=== PATIENT | male | born 1940 | race Caucasian/White ===

== ENCOUNTER → 2018-11-15 | Outpatient (CLI) | payer MEDICARE, OTHER ==
[~2018-11-15] MED LIST: AMLO10 PO; ASPI81CH PO; ASPI81EC PO; CARV25 PO; HYDR1TAB94 PO; XARELTO10 MG PO
== END | disposition home or self-care (01) ==
LOC: PLD 11:08 → LAB SHORT 11:08
DX: C44.319 Basal cell carcinoma of skin of other parts of face (principal); L57.0 Actinic keratosis
CPT/HCPCS: 88305

== ENCOUNTER → 2018-12-06 | Outpatient (CLI) | payer MEDICARE, OTHER | END | disposition home or self-care (01) | LOC: PLD 08:21 → LAB SHORT 08:21 | DX: C44.319 Basal cell carcinoma of skin of other parts of face (principal) | CPT/HCPCS: 88305 ==

== ENCOUNTER → 2023-04-21 | Outpatient (CLI) | payer MEDICARE, OTHER | LOC: PLD 12:09 → LAB SHORT 12:09 → LAB 12:09 | DX: C44.519 Basal cell carcinoma of skin of other part of trunk (principal) | CPT/HCPCS: 88305 ==

== ENCOUNTER → 2023-05-17 | Outpatient (CLI) | payer MEDICARE, OTHER | LOC: LAB SHORT 14:32 → PLD 14:32 | DX: C44.519 Basal cell carcinoma of skin of other part of trunk (principal) | CPT/HCPCS: 88305 ==